=== PATIENT | male | born 1955 | race Caucasian/White ===

== ENCOUNTER 2022-03-21 09:38 | Emergency (ER) | payer OTHER, SELFPAY ==
[2022-03-21 09:40] VITALS: BP 181/104; PULSE 109; RESP 20; TEMP 36.6; O2SAT 99; BMI 32.3
--- NOTE | 2022-03-21 10:14 | EX.ED.DYSGE1 ---
HPI History of Present Illness Chief Complaint: Hypertension Narrative Narrative: 67-year-old male past medical history of hypertension for which he has been taking lisinopril 10 mg orally every morning for the last few years presents with elevated blood pressure. He denies any chest pain or shortness of breath. No headaches. He states over the last few days he has felt flushed at times, but is very transient. No numbness or tingling of his arms or legs. 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 He states that he has a blood pressure cuff at home that fits over his wrist but he does not regularly take his blood pressure. He presents because of the elevated blood pressure reading. He is currently asymptomatic. [facility] Medical History Hypertension Home Medications lisinopril 10 mg tablet 10 mg PO DAILY 03/21/22 [History Last Taken Unknown] Allergy/AdvReac Type Severity Reaction Status Date / Time No Known Allergies Allergy Verified 03/21/22 09:42 Social History Smoking Status: Never smoker ROS ROS ED ROS Narrative Constitutional: No fever, no chills. Occasionally feels flushed, transiently. HEENT: No sore throat. No neck pain. No loss of vision. No rhinorrhea. Cardiovascular: No chest pain. No palpitations. No pedal edema. Respiratory: No cough, no shortness of breath. Abdominal: No abdominal pain. No nausea. No vomiting. Genitourinary: No dysuria. No hematuria. Musculoskeletal: No myalgias. No arthralgias. Neurologic: No headaches. No dizziness. No lightheadedness. Skin: No rash. No change in color. Psychiatric: No depression. No anxiety. EXAM Physical Exam Narrative Exam Narrative: Afebrile. Vital signs noted. HEENT: Normocephalic. Atraumatic. PERRL, EOMI. Neck soft and supple. No point tenderness or step off. Cardiovascular: Regular rate and rhythm. No murmurs, rubs, or gallops appreciated. Respiratory: No tachypnea. Lungs clear to auscultation bilaterally. Gastrointestinal: Abdomen soft, nontender, with normoactive bowel sounds. No rebound or guarding. Neurological: Awake. Alert. Nonfocal, nonlateralizing. Skin: No rash. Normal color. No pallor. Musculoskeletal: No pedal edema. Full range of motion extremities. Const Vital Signs: 03/21/22 09:40 03/21/22 09:52 Temperature 97.9 F Temperature Source Temporal Pulse Rate 109 H Respiratory Rate 20 H Respiratory Effort Normal Blood Pressure 181/104 H Blood Pressure Mean 129 Pulse Ox 99 Oxygen Delivery Method Room Air MDM MDM MDM Narrative Medical decision making narrative: Although the patient has an elevated blood pressure reading of 181/104, he is asymptomatic with this. He was instructed to start taking 20 mg of lisinopril daily and keep a log of his blood pressures. States he has a follow-up appointment with a physician who has replaced his retired physician within the next 1 to 2 weeks. He was given lisinopril 10 mg here in the emergency department. I feel he can be discharged safely home with follow-up. I reiterated the importance of keeping a log of his blood pressures. Strict return instructions to the emergency department were reviewed. Disposition is discharged home in stable condition. Discharge Plan Triage Chief Complaint: Hypertension ED Provider: Justin Frazier Dx/Rx/DC Orders Clinical Impression: Asymptomatic hypertension, Hypertension, uncontrolled Instructions: ED Hypertension, Established Prescriptions: No Action lisinopril 10 mg tablet 10 mg PO DAILY Primary Care Provider: Care Physician,No Primary Referrals: Care Physician,No Primary [Primary Care Provider] - Activity Restrictions/Additional Instructions: Follow-up with your primary care physician as scheduled for your retired primary care physician. Keep a log of your blood pressures. Increase your lisinopril to 20 mg orally every morning. Return with elevated systolic blood pressure above 200, or symptomatic hypertension including headache, chest pain, shortness of breath. Disposition Disposition: Home, Self Care
[2022-03-21] MEDS: Lisinopril 10 MG Tablet PO (10:48)
== END 2022-03-21 10:49 | disposition home or self-care (01) ==
PROVIDERS: Emergency Provider Emergency Medicine; Visit Provider Emergency Medicine
DX: I10 Essential (primary) hypertension (principal); Z79.899 Other long term (current) drug therapy
CPT/HCPCS: 99283

== ENCOUNTER 2022-05-21 09:41 | Day surgery (SDC) | payer OTHER, SELFPAY ==
--- NOTE | 2022-05-15 13:56 | EKG12_ITS ---
Test Reason : PREOP Blood Pressure : / mmHG Vent. Rate : 094 BPM Atrial Rate : 094 BPM P-R Int : 152 ms QRS Dur : 072 ms QT Int : 332 ms P-R-T Axes : 008 -02 028 degrees QTc Int : 415 ms Normal sinus rhythm Normal ECG Confirmed by SHAISTA DAVEY, YUNIOR ([id number]), material expeditor DIANA MCCORMICK ([id number]) on 05/17/2022 7:18:04 AM Referred By: Yash Cantu Confirmed By:YUNIOR NOONAN MD
--- NOTE | 2022-05-21 09:41 | PCM.HP.BLA ---
History and Physical Date of Admission: 05/21/22 Intake Vital Signs ? 03/21/2209:40 04/19/2213:30 Height 5 ft 10 in ? Weight: 225 lb 224 lb 4 oz BMI 32.3 ? BP 181/104 H 163/95 H Blood Pressure Location ? Rt popliteal Position ? Sitting Respiration 20 H 17 Pulse 109 H 100 Pulse Source ? Monitor Temp 97.9 F 97.3 F L Temp Source Temporal Temporal Pulse Oximetry (%) 99 97 Oxygen Delivery Method ? room air Intake Visit Reasons:?UMBILICAL HERNIA Chief Complaint: umbilical hernia Is patient in pain?: No Allergies No Known Allergies Allergy (Verified 04/19/22 13:31) Medications cetirizine 10 mg capsule (Zyrtec) 10 mg PO DAILY 04/19/22 [History Confirmed 04/19/22] fluticasone propionate 50 mcg/actuation nasal spray,suspension 1 spray intranasal DAILY PRN allergy symptoms 04/19/22 [History Confirmed 04/19/22] lisinopril 10 mg tablet 30 mg PO DAILY 04/19/22 [History Confirmed 04/19/22] melatonin 3 mg capsule 3 mg PO HS PRN 04/19/22 [History Confirmed 04/19/22] multivitamin 1 tab PO DAILY 04/19/22 [History Confirmed 04/19/22] PFSH Medical History? Hypertension Family History?(Updated 04/19/22 @ 13:29 by Alix Jamison) Mother Breast cancer DiabetesFather HypertensionUncle Colon cancer Social History?(Updated 04/19/22 @ 13:30 by Alix Jamison) Smoking Status:? Never smoker alcohol intake:? never substance use type:? does not use HPI HPI HPI: Patient is a 67-year-old male with umbilical hernia.? He says has been there for many years but it is growing larger and more uncomfortable.? Patient denies any nausea or vomiting or fevers or chills. ROS General General: No weight change, appetite, fatigue, colon cancer, breast cancer or weakness HEENT HEENT: No difficulty swallowing, eye injury, eye surgery, swollen glands or hoarseness Endo Endocrine: No thyroid disease, diabetes mellitus, thyroid cancer, Hair loss, heat intolerance or cold intolerance Skin Skin: No rash or changing moles Breast Breast: No left breast lump, right breast lump, nipple discharge, breast pain, abnormal mammogram, abnormal US or breast enlargement Musc Musculoskeletal: Yes arthritis; No back problems, rheumatoid arthritis, gout or joint pain Cardio Cardiovascular: Yes high blood pressure; No murmur, pacemaker, heart disease, atrial fibrillation, heart attack, heart stent, palpitations, shortness of breat with exertion or chest pain Psych Psychiatric: No depression, anxiety or hearing voices Resp Respiratory: No shortness of breath, No sleep apnea, No cough, No COPD, No asthma, No emphysema and No wheezing Gastro Gastrointestinal: No abdominal pain, No nausea or vomiting, No diarrhea, No constipation, No blood in stool, No acid reflux, No hemorrhoids, No ulcers, No gallbladder problem and No black,tarry stools Alexis Hematologic: No blood thinners, No blood disorders, No bleeding, No anemia and No blood clots Neuro Neurologic: No system reviewed and no additional complaints, except as documented, No as per HPI, No abnormal gait, No abnormal hearing, No abnormal movements, No abnormal speech, No behavioral changes, No burning sensations, No confusion, No convulsions, No disequilibrium, No dizziness, No localized weakness, No frequent falls, No headache(s), No lack of coordination, No loss of vision, No memory loss, No numbness, No other visual disturbances, No radicular pain, No restless legs, No sensory deficit, No syncope, No tingling, No tremor(s), No weakness and No other Exam Const General: cooperative Orientation: alert and oriented x3 [facility] Head: normal to inspection Neck Neck: normal visual inspection and full ROM Chest Chest palpation & inspection: normal inspection of the chest Resp Effort & Inspection: normal respiratory effort Auscultation: clear to auscultation bilaterally Cardio Rate: regular rate Rhythm: regular rhythm GI Inspection: non-distended Palpation: soft, hernia umbilical and nontender Skin General: no rashes or lesions noted Neuro General: patient alert and patient oriented x3 Extrem General: full ROM Psych Appearance: grossly normal Mental Status: mental status grossly normal Assessment and Plan Assessment and Plan (1) Umbilical hernia: ?Status:?Acute ?Plan: The patient has a reducible umbilical hernia.? Hernia defect is approximately 1 to 1.5 cm.? I discussed open umbilical hernia repair with mesh with the patient.? I discussed the procedure in detail as well as the risks of bleeding, infection, injury to lying bowel or organs.? I also discussed the recurrence risk and mesh placement.? Patient understands all the risks and is willing to proceed. Yash Cantu MD Pager: [facility] [address] [place] [address], [address] [place] [phone] Office: I have examined the patient and the H&P has been reviewed. There are no clinical changes since date of exam.
[2022-05-21] MEDS: Lactated Ringers 1,000 ML 15 ML IV (09:55)
[2022-05-21 10:16] VITALS: BP 145/93; PULSE 86; RESP 16; TEMP 36.4; O2SAT 96; BMI 31.3
[2022-05-21] MEDS: Cefazolin 2 GM in 0.9% Normal Saline 100 ML IV (10:40)
[2022-05-21] MEDS: Bupivacaine 0.25% 30 ML Vial (11:15)
--- NOTE | 2022-05-21 11:31 | OP.PCM_ITS ---
Report of Operation Date of Procedure: 05/21/22 Pre-Operative Diagnosis: Umbilical hernia Post-Operative Diagnosis: Umbilical hernia Surgery/Procedure Performed:: Umbilical hernia repair with mesh 3 cm defect Description of Procedure: Patient was brought back to the operating room and general anesthesia was induced. The abdomen was prepped and draped in usual sterile fashion. An incision was marked superior to the umbilicus and injected with local anesthetic. Incision was then made with a scalpel and electrocautery was used to take the umbilical stalk down from the hernia sac. Dissection was carried circumferentially until the exterior fascia was cleaned of subcutaneous fat. Next the hernia sac was reduced the peritoneum was taken down from the fascia. The preperitoneal space was developed. Next a medium Ventralex ST mesh was placed into the preperitoneal sac and sutured to the anterior abdominal wall using 2-0 PDS suture. The fascia was then closed in transverse fashion with interrupted 0 Nurolon suture. The hernia defect came together completely. Next the subcutaneous space was irrigated and suctioned dry. The umbilical stalk was tacked to the fascia using a 3-0 Vicryl suture. The incision was then closed with interrupted 3-0 Vicryl sutures and a running 4 Monocryl suture. Steri- Strips and bandages were applied. Patient was awoken and taken to PACU in stable condition. Patient tolerated procedure well. Grafts/Implants Used: Medium Ventralex ST mesh Admit VTE Documentation VTE Mechan Device Prophylaxis: SCD's
--- NOTE | 2022-05-21 11:35 | EX.PCM.DISCH ---
Discharge Instructions Procedure Hernia Diet Discharge Diet: Light diet - advance as tolerated Activity Discharge Activity: May Not Drive (for 2-3 days or while taking narcotic pain meds.) and May Shower (with the bandage in place 1-2 days after surgery.) Lifting Restrictions: 20 pounds for 6 weeks. Additional Activity Instructions:: Climbing stairs is fine, walking is encouraged. Sitting in bed may be uncomfortable. Sitting up using your lateral muscles (sitting up sideways) is usually more comfortable. Do not drive, work heavy equipment of sign legal documents for 24 hours. If your hernia repair was an inguinal repair, you may have scrotal swelling, an ice pack and/or athletic support can provide more comfort. Pain medications may cause nausea, you should typically eat light foods as you take your pain medications. Pain medications may also cause constipation. If you have difficulty with this, discuss with your doctor. Dressing / Incision Call your doctor if your incision/area has: Continuous Slow Oozing, Sudden Increased Bleeding, Increased Pain/ Swelling, Increased Redness and Foul Smelling Discharge Call your doctor if you observe: Fever of 101 or Higher Suture Line Care: Avoid Pulling/Pushing and Avoid Pinching/Bending Remove Dressing in: 2 days (Remove clear bandages in 2 days, remove Steri-Strips in 7 to 10 days.) Cleanse incision/area with: Soap & Water Follow Up Care Please Follow Up With: Yash Cantu MD When: Please call to schedule 2 week follow up appointment. [phone] Test Results: Test results from this visit will be discussed in further detail at your follow-up appointment, if applicable. Discharge Plan Admission Attending Provider: Yash Cantu Primary Care Provider: Jeff Kearney [employer]CH ASSEMBLY INSPECTOR Instructions Additional Instructions / Restrictions: Ibuprofen and Tylenol for pain. Oxycodone for breakthrough pain. Discharge Orders/Prescriptions Prescriptions: New oxycodone 5 mg tablet 5 - 10 mg PO Q6H PRN (Reason: pain) 5 Days Qty: 20 0RF No Action Zyrtec 10 mg capsule 10 mg PO DAILY multivitamin Tablet 1 tab PO DAILY fluticasone propionate 50 mcg/actuation spray,suspension 1 spray intranasal DAILY PRN (Reason: allergy symptoms) Rx Instructions: administer into each nostril melatonin 3 mg capsule 3 mg PO HS PRN (Reason: Sleep) lisinopril 10 mg tablet 30 mg PO DAILY Other Ambulatory Orders: 12 Lead EKG (Routine) Timeframe: [id number] Location: None Selected Ordered By: Dr. Baljeet Vázquez Referrals / Follow Up: Jeff Kearney [employer] ASSEMBLY INSPECTOR, [employer]Y INSPECTOR-C [Primary Care Provider] - Disposition Disposition (needs filled in before D/C Order can be placed): Home, Self Care
[2022-05-21 11:39] VITALS: BP 123/63; BP 145/93; PULSE 86; RESP 16; TEMP 36.7; O2SAT 93
[2022-05-21 11:45] VITALS: BP 126/87; BP 145/93; PULSE 83; RESP 16; O2SAT 92
[2022-05-21 12:00] VITALS: BP 126/75; BP 145/93; PULSE 80; RESP 16; O2SAT 93
[2022-05-21 12:17] VITALS: BP 130/90; BP 145/93; PULSE 75; RESP 16; TEMP 37; O2SAT 93
[2022-05-21] MEDS: Acetaminophen 325 MG Tablet 650 MG PO (12:50)
[2022-05-21] MEDS: Ibuprofen 600 MG Tablet PO (12:54)
[2022-05-21 13:00] VITALS: BP 140/97; BP 145/93; PULSE 79; RESP 16; TEMP 36.6; O2SAT 96
== END 2022-05-21 13:15 | disposition home or self-care (01) ==
LOC: SDC 09:42 → AC 09:42
PROVIDERS: PCP Nurse Practitioner Family; Referring Provider Surgery; Visit Provider Surgery
PROC: (CPT 49585; principal; 2022-05-21 11:15)
DX: K42.9 Umbilical hernia without obstruction or gangrene (principal); I10 Essential (primary) hypertension; Z79.899 Other long term (current) drug therapy
CPT/HCPCS: 49585; 00830; 93005; C1781; J7120; J2405